=== PATIENT | male | born 1970 | race Caucasian/White ===

== ENCOUNTER 2019-05-02 16:51 | Emergency (ER) | payer BC ==
[~2019-05-02] VITALS: Ht 182.9 cm; Wt 83.9 kg
[~2019-05-02 16:51] MED LIST: CYCLOBENZAPRINE10 MG PO; IBUPROFEN400 MG PO; IBUPROFEN800 MG PO
--- NOTE | 2019-05-03 18:12 | EKG ---
[facility] [address] [place], [place] [address] Signed Normal sinus rhythm Normal ECG No previous ECGs available Confirmed by MAYDA GRAY MD ([id number]) on 05/03/2019 6:12:14 PM Electronically Signed By: MAYDA GRAY MD 05/03/19 181 PATIENT NAME: REJI BRENNER Electrocardiogram DATE OF : 68 PHYSICIAN: MAYDA GRAY MD REPORT #: [id number] REPORT IS CONFIDENTIAL AND NOT TO BE RELEASED WITHOUT AUTHORIZATION
== END 2019-05-02 19:04 | disposition home or self-care (01) ==
LOC: ED 16:51
DX: R07.9 Chest pain, unspecified (principal); Z91.030 Bee allergy status; Z88.8 Allergy status to other drugs, medicaments and biological substances
CPT/HCPCS: 71046; 80053; 84484; 85025; 93005; 93010; 99285-25

== ENCOUNTER 2021-02-07 13:33 | Emergency (ER) | payer BC ==
[~2021-02-07] VITALS: Ht 182.9 cm; Wt 83.9 kg
[2021-02-07] MEDS ORDERED: VENTOLIN HFA18 GM INH (14:11)
[2021-02-07] MEDS ORDERED: HYDROCODON-ACE1 EA10 PO (14:11)
== END 2021-02-07 14:38 | disposition home or self-care (01) ==
LOC: ED 13:33
DX: U07.1 COVID-19 (principal); Z91.030 Bee allergy status; Z88.8 Allergy status to other drugs, medicaments and biological substances
CPT/HCPCS: 99283